=== PATIENT | female | born 1950 | race African-American/Black ===

== ENCOUNTER 2016-12-09 13:53 | Emergency (ER) | payer MEDICARE ==
[~2016-12-09] VITALS: Ht 167.6 cm; Wt 84.0 kg
[~2016-12-09 13:53] MED LIST: METOPROLOL PO; NORVASC PO
[2016-12-09] MEDS ORDERED: ALTEPLASE IV ONE ×2 (15:15→15:29)
[2016-12-09] MEDS ORDERED: ALTEPLASE 100MG/VIAL IV NR ×2 (15:15→15:27)
[2016-12-09] MEDS ORDERED: CONTAINER EMPTY IV ONE ×2 (15:15→15:29)
[2016-12-09] MEDS ORDERED: LABETALOL 5MG/ML SYR 20 MG/4 ML SYRINGE IV ONE ×2 (15:30)
[2016-12-09 15:33] LABS: CLARITY URINE CLEAR (CLEAR); COLOR URINE YELLOW (YELLOW); GLUCOSE URINE NEGATIVE (NEGATIVE); KETONES URINE NEGATIVE (NEGATIVE); LEUKOCYTE ESTERASE URINE NEGATIVE (NEGATIVE); NITRITE URINE NEGATIVE (NEGATIVE); OCCULT BLOOD URINE NEGATIVE (NEGATIVE); PH URINE 5.5 (4.5-8.0); PROTEIN URINE NEGATIVE (NEGATIVE); SPECIFIC GRAVITY URINE 1.009 (1.005-1.030)
[2016-12-09 15:37] LABS: BASOPHILS % 0.8 % (0.0-2.0); HEMATOCRIT. 43.7 % (36.0-48.0); HEMOGLOBIN. 14.4 g/dL (12.0-16.0); MEAN CORPUSCULAR HEMOGLOBIN 28.9 pg (28.0-32.0); MEAN CORPUSCULAR VOLUME 87.6 fL (81.0-99.0); MEAN PLATELET VOLUME 9.4 fl (7.4-10.4); MONOCYTES % 5.5 % (2.0-8.0); NEUTROPHILS % 52.7 % (40.0-76.0); PARTIAL THROMBOPLASTIN TIME 27.8 sec (24.0-34.0); PLATELET 311 x1000/uL (130-400); PROTHROMBIN TIME 10.4 sec; RED BLOOD CELL COUNT 4.99 mill/uL (4.2-5.4)
[2016-12-09 15:41] LABS: CARBON DIOXIDE 23 mEq/L (21-32); CHLORIDE 107 mEq/L (98-107)
[2016-12-09 15:43] LABS: ETHANOL BLOOD < 10 mg/dL
[2016-12-09 15:44] LABS: *AMPHETAMINES SCREEN URINE NEGATIVE (NEGATIVE); *BARBITURATES SCREEN URINE NEGATIVE (NEGATIVE); *BENZODIAZEPINES SCREEN URINE NEGATIVE (NEGATIVE); *COCAINE SCREEN URINE NEGATIVE (NEGATIVE); CANNABINOID URINE SCREEN NEGATIVE (NEGATIVE); METHADONE URINE SCREEN NEGATIVE (NEGATIVE); OPIATES URINE SCREEN NEGATIVE (NEGATIVE); PHENCYCLIDINE URINE SCREEN NEGATIVE (NEGATIVE)
[2016-12-09 15:47] LABS: TROPONIN I < 0.02 ng/mL (0.00-0.04)
[2016-12-09 17:00] VITALS: BP 159/96
== END 2016-12-09 17:25 | disposition short-term general hospital (02) ==
LOC: EDBD 14:00 → ER 14:00
DX: I63.9 Cerebral infarction, unspecified (principal); R53.1 Weakness; I10 Essential (primary) hypertension; Z88.0 Allergy status to penicillin; Z86.73 Personal history of transient ischemic attack (TIA), and cerebral infarction without residual deficits
CPT/HCPCS: 36415; 37195; 70450; 71010; 80053; 80305; 81003; 82962; 83880; 84484; 85025; 85610; 85730; 86850; 86900; 86901; 93005; 99291; G0482; J2997; J3490; 96365; 96375; J7060

== ENCOUNTER → 2017-10-25 | Outpatient (CLI) | payer MEDICARE, MEDICAID | END | disposition home or self-care (01) | LOC: MAMMO 10:28 | PROVIDERS: ATTEND Internal Medicine | DX: Z12.31 Encounter for screening mammogram for malignant neoplasm of breast (principal) | CPT/HCPCS: 77067 ==

== ENCOUNTER 2019-04-10 07:30 | Emergency (ER) | payer MEDICARE, MEDICAID ==
[~2019-04-10] VITALS: Ht 165.1 cm; Wt 82.0 kg
[~2019-04-10 07:30] MED LIST changes: +AMLO10TA80 PO; +ASPI-1158 PO; +ATEN50TA PO; -METOPROLOL PO; -NORVASC PO; +VALS80TA30 PO
[2019-04-10 09:14] LABS: CLARITY URINE CLEAR (CLEAR); COLOR URINE YELLOW (YELLOW); KETONES URINE TRACE (NEGATIVE); LEUKOCYTE ESTERASE URINE 1+ (NEGATIVE); NITRITE URINE NEGATIVE (NEGATIVE); OCCULT BLOOD URINE 2+ (NEGATIVE); PH URINE 5.5 (4.5-8.0); PROTEIN URINE NEGATIVE (NEGATIVE); SPECIFIC GRAVITY URINE 1.026 (1.005-1.030); UROBILINOGEN URINE 0.2 E.U./dL (0.2-1.0)
[2019-04-10 09:17] LABS: BASOPHILS % 1.3 % (0.0-2.0); HEMATOCRIT. 39.5 % (36.0-48.0); HEMOGLOBIN. 13.3 g/dL (12.0-16.0); LYMPHOCYTES % 29.5 % (20.0-50.0); MEAN CORPUSCULAR HEMOGLOBIN 30.9 pg (28.0-32.0); MEAN CORPUSCULAR VOLUME 91.6 fL (81.0-99.0); MEAN PLATELET VOLUME 9.4 fl (7.4-10.4); MONOCYTES % 6.6 % (2.0-8.0); NEUTROPHILS % 54.6 % (40.0-76.0); PLATELET 252 x1000/uL (130-400); RED BLOOD CELL COUNT 4.31 mill/uL (4.2-5.4); RED CELL DISTRIBUTION WIDTH 12.8 % (11.6-14.6)
[2019-04-10 09:20] LABS: CHLORIDE 108 mEq/L (98-107)
[2019-04-10 09:25] LABS: ETHANOL BLOOD < 10 mg/dL
[2019-04-10 09:46] LABS: *AMPHETAMINES SCREEN URINE NEGATIVE (NEGATIVE); *BARBITURATES SCREEN URINE NEGATIVE (NEGATIVE); *BENZODIAZEPINES SCREEN URINE NEGATIVE (NEGATIVE); *COCAINE SCREEN URINE NEGATIVE (NEGATIVE)
[2019-04-10 09:47] LABS: CANNABINOID URINE SCREEN NEGATIVE (NEGATIVE); METHADONE URINE SCREEN NEGATIVE (NEGATIVE); OPIATES URINE SCREEN NEGATIVE (NEGATIVE); PHENCYCLIDINE URINE SCREEN NEGATIVE (NEGATIVE)
[2019-04-10] MEDS ORDERED: ACETAMINOPHEN 325MG TABLET PO ONE (10:15)
[2019-04-10] MEDS ORDERED: KETOROLAC 15MG/ML VIAL IV ONE (10:15)
[2019-04-10] MEDS ORDERED: PROCHLORPERAZINE 10MG/2ML VIAL IV PRN (10:15)
[2019-04-10 12:57] VITALS: BP 132/77
== END 2019-04-10 12:58 | disposition home or self-care (01) ==
LOC: ER 07:30
DX: R51 Headache (principal); N39.0 Urinary tract infection, site not specified; I10 Essential (primary) hypertension; Z98.890 Other specified postprocedural states; Z88.0 Allergy status to penicillin; Z88.8 Allergy status to other drugs, medicaments and biological substances; Z79.82 Long term (current) use of aspirin; Z79.899 Other long term (current) drug therapy
CPT/HCPCS: 36415; 70450; 71045; 80053; 80305; 80320; 81003; 82962; 83880; 84484; 85025; 93005; 96374; 96375; 99284; J1885; G0480

== ENCOUNTER 2020-01-10 10:11 | Emergency (ER) | payer MEDICARE, MEDICAID ==
[~2020-01-10] VITALS: Ht 177.8 cm; Wt 89.0 kg
[2020-01-10] MEDS ORDERED: SODIUM CHLORIDE 0.9% 500 ML IV ONE (11:30)
[2020-01-10] MEDS ORDERED: MORPHINE SULFATE 4 MG/ML CPJ (NOT FOR IM USE) IV ONE (11:30)
[2020-01-10] MEDS ORDERED: ONDANSETRON HCL 4MG/2ML INJ IV ONE (12:15)
[2020-01-10 12:46] VITALS: BP 155/75
[2020-01-10 12:47] LABS: BASOPHILS % 1.3 % (0.0-2.0); EOSINOPHILS % 5.9 % (0.0-5.0); HEMATOCRIT. 41.4 % (36.0-48.0); HEMOGLOBIN. 14.1 g/dL (12.0-16.0); LYMPHOCYTES % 25.8 % (20.0-50.0); MEAN CORPUSCULAR VOLUME 91.1 fL (81.0-99.0); MEAN PLATELET VOLUME 9.9 fl (7.4-10.4); MONOCYTES % 6.3 % (2.0-8.0); NEUTROPHILS % 60.7 % (40.0-76.0); PLATELET 263 x1000/uL (130-400); RED BLOOD CELL COUNT 4.54 mill/uL (4.2-5.4); RED CELL DISTRIBUTION WIDTH 13.3 % (11.6-14.6)
[2020-01-10 12:55] LABS: CHLORIDE 105 mEq/L (98-107)
[2020-01-10] MEDS ORDERED: ASPIRIN 325MG TABLET PO ONE (14:00)
== END 2020-01-10 13:56 | disposition home or self-care (01) ==
LOC: ER 10:11
DX: M25.511 Pain in right shoulder (principal); M25.562 Pain in left knee; M54.5 Low back pain; I10 Essential (primary) hypertension; Z79.899 Other long term (current) drug therapy; Z88.0 Allergy status to penicillin
CPT/HCPCS: 36415; 71045; 73030; 73562; 80053; 83880; 84484; 85025; 93005; 96374; 96375; 99285; J2270; J2405; J7040

== ENCOUNTER 2021-01-04 09:03 | Emergency (ER) | payer MEDICARE, MEDICAID ==
[~2021-01-04] VITALS: Ht 165.1 cm; Wt 77.0 kg
[~2021-01-04 09:03] MED LIST changes: -ASPI-1158 PO; +ASPI-1406 PO; +LOSA50TA41 PO
[2021-01-04 09:18] VITALS: BP 152/89
[2021-01-04] MEDS ORDERED: ACETAMINOPHEN 325MG TABLET PO ONE (09:45)
[2021-01-04] MEDS ORDERED: ACET-2708 MT (11:17)
== END 2021-01-04 11:32 | disposition home or self-care (01) ==
LOC: ER 09:03
DX: M25.561 Pain in right knee (principal); M79.661 Pain in right lower leg; I10 Essential (primary) hypertension; M19.90 Unspecified osteoarthritis, unspecified site; Z98.1 Arthrodesis status; Z88.8 Allergy status to other drugs, medicaments and biological substances; Z88.0 Allergy status to penicillin; W01.0XXA Fall on same level from slipping, tripping and stumbling without subsequent striking against object, initial encounter; Y93.89 Activity, other specified; Y92.018 Other place in single-family (private) house as the place of occurrence of the external cause
CPT/HCPCS: 73562; 93971; 99284

== ENCOUNTER 2021-05-19 11:30 | Inpatient (IN) | payer MEDICARE, MEDICAID ==
[~2021-05-19] VITALS: Ht 167.6 cm; Wt 79.4 kg
[~2021-05-19 11:30] MED LIST changes: +ACET-2708 MT
[2021-05-19 12:13] LABS: BASOPHILS % 1.2 % (0.0-2.0); EOSINOPHILS % 10.5 % (0.0-5.0); HEMATOCRIT. 39.7 % (36.0-48.0); HEMOGLOBIN. 13.3 g/dL (12.0-16.0); LYMPHOCYTES % 40.5 % (20.0-50.0); MEAN CORPUSCULAR HEMOGLOBIN 30.7 pg (28.0-32.0); MEAN CORPUSCULAR VOLUME 91.5 fL (81.0-99.0); MEAN PLATELET VOLUME 9.6 fl (7.4-10.4); MONOCYTES % 7.2 % (2.0-8.0); NEUTROPHILS % 40.6 % (40.0-76.0); PLATELET 272 x1000/uL (130-400); RED BLOOD CELL COUNT 4.34 mill/uL (4.2-5.4); RED CELL DISTRIBUTION WIDTH 12.7 % (11.6-14.6)
[2021-05-19 12:18] LABS: CHLORIDE 109 mEq/L (98-107)
[2021-05-19 12:20] LABS: PROTHROMBIN TIME 10.8 sec (9.6-11.0)
[2021-05-19 12:24] LABS: ETHANOL BLOOD < 10 mg/dL
[2021-05-19] MEDS ORDERED: IPRATROPIUM/ALBUTEROL 0.5-3(2.5)MG/3ML NEB HHN PRN (15:00)
[2021-05-19] MEDS ORDERED: ONDANSETRON HCL 4MG/2ML INJ IV PRN (15:00)
[2021-05-19] MEDS ORDERED: DIPHENHYDRAMINE 50MG/ML VIAL IV PRN (15:00)
[2021-05-19 15:23] LABS: CLARITY URINE CLEAR (CLEAR); COLOR URINE YELLOW (YELLOW); KETONES URINE NEGATIVE (NEGATIVE); LEUKOCYTE ESTERASE URINE 1+ (NEGATIVE); NITRITE URINE NEGATIVE (NEGATIVE); OCCULT BLOOD URINE NEGATIVE (NEGATIVE); PH URINE 5.5 (4.5-8.0); PROTEIN URINE NEGATIVE (NEGATIVE); SPECIFIC GRAVITY URINE 1.016 (1.005-1.030); UROBILINOGEN URINE 0.2 E.U./dL (0.2-1.0)
[2021-05-19 15:34] LABS: *AMPHETAMINES SCREEN URINE NEGATIVE (NEGATIVE); *BARBITURATES SCREEN URINE NEGATIVE (NEGATIVE)
[2021-05-19 15:35] LABS: *BENZODIAZEPINES SCREEN URINE NEGATIVE (NEGATIVE); *COCAINE SCREEN URINE NEGATIVE (NEGATIVE); CANNABINOID URINE SCREEN NEGATIVE (NEGATIVE); METHADONE URINE SCREEN NEGATIVE (NEGATIVE); OPIATES URINE SCREEN NEGATIVE (NEGATIVE); PHENCYCLIDINE URINE SCREEN NEGATIVE (NEGATIVE)
[2021-05-19 20:00] VITALS: BP 150/59
[2021-05-19] MEDS: ACETAMINOPHEN 325MG TABLET PO PRN (21:34)
[2021-05-19] MEDS: CLONIDINE 0.1MG TABLET PO PRN (22:00)
[2021-05-20] VITALS (7 sets, daily range): BP systolic 137–169; BP diastolic 51–81
[2021-05-20] MEDS: ACETAMINOPHEN 325MG TABLET PO PRN ×3 (05:24→20:29)
[2021-05-20 07:28] LABS: CHLORIDE 110 mEq/L (98-107)
[2021-05-20 07:34] LABS: BASOPHILS % 1.1 % (0.0-2.0); EOSINOPHILS % 8.3 % (0.0-5.0); HEMATOCRIT. 38.1 % (36.0-48.0); HEMOGLOBIN. 12.7 g/dL (12.0-16.0); LYMPHOCYTES % 33.3 % (20.0-50.0); MEAN CORPUSCULAR HEMOGLOBIN 30.6 pg (28.0-32.0); MEAN PLATELET VOLUME 9.5 fl (7.4-10.4); MONOCYTES % 7.5 % (2.0-8.0); NEUTROPHILS % 49.8 % (40.0-76.0); PLATELET 262 x1000/uL (130-400); RED BLOOD CELL COUNT 4.14 mill/uL (4.2-5.4); RED CELL DISTRIBUTION WIDTH 12.7 % (11.6-14.6)
[2021-05-20 07:42] LABS: LDL CHOLESTEROL 109 mg/dL (5-100)
[2021-05-20 07:43] LABS: HDL CHOLESTEROL 43 mg/dL (40-59)
[2021-05-20] MEDS ORDERED: IOHEXOL-350 100 ML BOTTLE ONE (13:58)
[2021-05-20] MEDS: CLONIDINE 0.1MG TABLET PO PRN (20:10)
[2021-05-21] VITALS: BP 139/74
[2021-05-21] MEDS: ACETAMINOPHEN 325MG TABLET PO PRN ×2 (01:55→10:36)
[2021-05-21 04:00] VITALS: BP 138/54
[2021-05-21 08:00] VITALS: BP 147/75
[2021-05-21] MEDS ORDERED: ATENOLOL 50 MG TABLET PO SCH (09:00)
[2021-05-21] MEDS ORDERED: AMLODIPINE 10MG TABLET PO SCH (09:00)
[2021-05-21] MEDS ORDERED: LOSARTAN POTASSIUM 50 MG TABLET PO SCH (09:00)
== END 2021-05-21 15:34 | disposition left against medical advice (07) | DRG 948 ==
LOC: ER 11:30 → EDBEDREQTM 13:12 → EDBEDREQSVC 13:12 → EDBEDREQ 13:12 → 7EST 14:09 → EDBEDREQ 14:14 → EDBEDREQTM 14:14 → ENRESERV 17:53
PROVIDERS: ADMIT Internal Medicine; ATTEND Internal Medicine
DX: R53.1 Weakness (principal); I65.21 Occlusion and stenosis of right carotid artery; M19.90 Unspecified osteoarthritis, unspecified site; I10 Essential (primary) hypertension; Z53.29 Procedure and treatment not carried out because of patient's decision for other reasons; Z86.73 Personal history of transient ischemic attack (TIA), and cerebral infarction without residual deficits; Z88.0 Allergy status to penicillin; Z88.8 Allergy status to other drugs, medicaments and biological substances; Z79.899 Other long term (current) drug therapy; Z79.82 Long term (current) use of aspirin; Z79.1 Long term (current) use of non-steroidal anti-inflammatories (NSAID); Z82.49 Family history of ischemic heart disease and other diseases of the circulatory system; Z83.3 Family history of diabetes mellitus
CPT/HCPCS: 36415; 70496; 70498; 70551; 71045; 80053; 80061; 80305; 80320; 81003; 82962; 84443; 84484; 85025; 93005; 93970; 99285; Q9967; G0480

== ENCOUNTER 2021-07-02 21:38 | Emergency (ER) | payer MEDICARE, MEDICAID ==
[~2021-07-02] VITALS: Ht 165.1 cm; Wt 77.0 kg
[2021-07-02 21:53] VITALS: BP 178/82
== END 2021-07-03 01:42 | disposition left against medical advice (07) ==
LOC: ER 21:38
DX: Z53.21 Procedure and treatment not carried out due to patient leaving prior to being seen by health care provider (principal)

== ENCOUNTER 2021-09-24 18:55 | Inpatient (IN) | payer MEDICARE, MEDICAID ==
[~2021-09-24] VITALS: Ht 165.1 cm; Wt 80.3 kg
[2021-09-24] MEDS ORDERED: SODIUM CHLORIDE 0.9% 1,000 ML IV ONE (19:30)
[2021-09-24] MEDS ORDERED: MECLIZINE 25MG TABLET PO ONE (19:45)
[2021-09-24 20:51] LABS: BASOPHILS % 0.8 % (0.0-2.0); EOSINOPHILS % 3.6 % (0.0-5.0); HEMOGLOBIN. 12.9 g/dL (12.0-16.0); MEAN CORPUSCULAR HEMOGLOBIN 30.9 pg (28.0-32.0); MEAN PLATELET VOLUME 9.3 fl (7.4-10.4); MONOCYTES % 6.9 % (2.0-8.0); NEUTROPHILS % 66.7 % (40.0-76.0); PLATELET 250 x1000/uL (130-400); RED BLOOD CELL COUNT 4.18 mill/uL (4.2-5.4); RED CELL DISTRIBUTION WIDTH 12.9 % (11.6-14.6)
[2021-09-24 21:05] LABS: CHLORIDE 107 mEq/L (98-107)
[2021-09-24] MEDS ORDERED: ENOXAPARIN 100MG/ML SYR SUBCUT ONE (22:15)
[2021-09-25 10:00] VITALS: BP 214/75
[2021-09-25] MEDS ORDERED: CLONIDINE 0.1MG TABLET PO PRN (10:00)
[2021-09-25] MEDS ORDERED: ONDANSETRON HCL 4MG/2ML INJ IV PRN (10:00)
[2021-09-25] MEDS ORDERED: LORAZEPAM 0.5MG TABLET PO PRN (10:00)
[2021-09-25] MEDS ORDERED: ACETAMINOPHEN 325MG TABLET PO PRN ×2 (10:00)
[2021-09-25] MEDS ORDERED: IPRATROPIUM/ALBUTEROL 0.5-3(2.5)MG/3ML NEB HHN PRN (10:00)
[2021-09-25] MEDS ORDERED: DOCUSATE SODIUM 100MG CAPSULE PO PRN (10:00)
[2021-09-25] MEDS ORDERED: NALOXONE HCL 0.4MG/ML VIAL IV PRN (10:15)
[2021-09-25] MEDS: MECLIZINE 25MG TABLET PO SCH ×3 (11:11→21:28)
[2021-09-25] MEDS: AMLODIPINE 10MG TABLET PO SCH (11:11)
[2021-09-25] MEDS: LOSARTAN POTASSIUM 50 MG TABLET PO SCH (11:11)
[2021-09-25] MEDS: HYDROCODONE/ACETAMINOPHEN 5/325MG TABLET PO PRN ×2 (11:12→17:55)
[2021-09-25 12:00] VITALS: BP 107/54
[2021-09-25 13:44] LABS: BASOPHILS % 1.3 % (0.0-2.0); HEMATOCRIT. 38.3 % (36.0-48.0); LYMPHOCYTES % 32.4 % (20.0-50.0); MEAN CORPUSCULAR HEMOGLOBIN 30.4 pg (28.0-32.0); MEAN CORPUSCULAR VOLUME 90.1 fL (81.0-99.0); MEAN PLATELET VOLUME 9.5 fl (7.4-10.4); MONOCYTES % 8.6 % (2.0-8.0); NEUTROPHILS % 52.7 % (40.0-76.0); PLATELET 234 x1000/uL (130-400); RED BLOOD CELL COUNT 4.26 mill/uL (4.2-5.4); RED CELL DISTRIBUTION WIDTH 12.6 % (11.6-14.6)
[2021-09-25] MEDS: ASPIRIN 81MG EC TABLET PO SCH (14:54)
[2021-09-25 15:42] LABS: CHLORIDE 110 mEq/L (98-107)
[2021-09-25 15:52] LABS: CREATINE KINASE 247 IU/L (26-192)
[2021-09-25 16:00] VITALS: BP 142/59
[2021-09-25 20:00] VITALS: BP 144/59
[2021-09-25] MEDS ORDERED: ATORVASTATIN CALCIUM 20MG TABLET PO SCH (21:00)
[2021-09-25] MEDS: ATENOLOL 25MG TABLET PO SCH (21:28)
[2021-09-25 22:00] VITALS: BP 148/60
[2021-09-26] VITALS: BP 123/75
[2021-09-26 04:00] VITALS: BP 139/50
[2021-09-26] MEDS: MECLIZINE 25MG TABLET PO SCH ×2 (06:48→14:16)
[2021-09-26 07:48] LABS: BASOPHILS % 1.2 % (0.0-2.0); EOSINOPHILS % 9.2 % (0.0-5.0); HEMOGLOBIN. 13.1 g/dL (12.0-16.0); MEAN CORPUSCULAR HEMOGLOBIN 30.5 pg (28.0-32.0); MEAN CORPUSCULAR VOLUME 91.2 fL (81.0-99.0); MEAN PLATELET VOLUME 9.3 fl (7.4-10.4); MONOCYTES % 10.3 % (2.0-8.0); NEUTROPHILS % 46.3 % (40.0-76.0); PLATELET 245 x1000/uL (130-400); RED BLOOD CELL COUNT 4.28 mill/uL (4.2-5.4); RED CELL DISTRIBUTION WIDTH 12.8 % (11.6-14.6)
[2021-09-26 08:00] VITALS: BP 130/60
[2021-09-26 08:10] LABS: CHLORIDE 109 mEq/L (98-107)
[2021-09-26 08:14] LABS: CREATINE KINASE 237 IU/L (26-192)
[2021-09-26] MEDS: ATENOLOL 25MG TABLET PO SCH (08:28)
[2021-09-26] MEDS: ASPIRIN 81MG EC TABLET PO SCH (08:35)
[2021-09-26] MEDS: LOSARTAN POTASSIUM 50 MG TABLET PO SCH (08:35)
[2021-09-26] MEDS: AMLODIPINE 10MG TABLET PO SCH (08:35)
[2021-09-26 12:00] VITALS: BP 114/81
[2021-09-26] MEDS: HYDROCODONE/ACETAMINOPHEN 5/325MG TABLET PO PRN (12:31)
[2021-09-26] MEDS ORDERED: ATEN-42 MT (15:07)
[2021-09-26] MEDS ORDERED: ATOR20TA PO (15:07)
[2021-09-26] MEDS ORDERED: MECL-159 MT (15:07)
[2021-09-26 15:25] VITALS: BP 114/81
[2021-09-26 16:00] VITALS: BP 162/90
[2021-09-26] MEDS ORDERED: LOSARTAN POTASSIUM 50 MG TABLET PO NR (16:45)
[2021-09-26] MEDS ORDERED: LOSA50TA41 MT (16:47)
== END 2021-09-26 19:22 | disposition home health service (06) | DRG 149 ==
LOC: ER 18:55 → MICUSO 23:11 → EDBEDREQ 23:15 → EDBEDREQTM 23:15 → 6WST 09-25 09:46
PROVIDERS: ADMIT Internal Medicine; ATTEND Internal Medicine
DX: H81.10 Benign paroxysmal vertigo, unspecified ear (principal); I21.A1 Myocardial infarction type 2; I16.1 Hypertensive emergency; I10 Essential (primary) hypertension; I65.23 Occlusion and stenosis of bilateral carotid arteries; K21.9 Gastro-esophageal reflux disease without esophagitis; E78.5 Hyperlipidemia, unspecified; E11.65 Type 2 diabetes mellitus with hyperglycemia; I48.0 Paroxysmal atrial fibrillation; Z20.822 Contact with and (suspected) exposure to COVID-19; M19.90 Unspecified osteoarthritis, unspecified site; Z82.49 Family history of ischemic heart disease and other diseases of the circulatory system; Z83.3 Family history of diabetes mellitus; Z88.0 Allergy status to penicillin; Z88.8 Allergy status to other drugs, medicaments and biological substances
CPT/HCPCS: 36415; 70551; 71045; 80048; 80053; 82550; 83735; 83880; 84443; 84484; 85025; 87426; 93005; 93306; 97162; 99285; J1650; J7030; J8597

== ENCOUNTER 2022-12-22 16:02 | Inpatient (IN) | payer MEDICARE, MEDICAID ==
[~2022-12-22] VITALS: Ht 165.1 cm; Wt 89.9 kg
[~2022-12-22 16:02] MED LIST changes: +ATEN-42 MT; -ATEN50TA PO; +ATOR20TA PO; +LOSA50TA41 MT; -LOSA50TA41 PO; +MECL-159 MT; -VALS80TA30 PO
[2022-12-22 16:47] LABS: BASOPHILS % 0.9 % (0.0-2.0); EOSINOPHILS % 3.5 % (0.0-5.0); HEMATOCRIT. 36.6 % (36.0-48.0); HEMOGLOBIN. 12.1 g/dL (12.0-16.0); LYMPHOCYTES % 27.7 % (20.0-50.0); MEAN CORPUSCULAR HEMOGLOBIN 29.9 pg (28.0-32.0); MEAN CORPUSCULAR VOLUME 90.4 fL (81.0-99.0); MEAN PLATELET VOLUME 9.9 fl (7.4-10.4); MONOCYTES % 7.5 % (2.0-8.0); NEUTROPHILS % 60.4 % (40.0-76.0); PLATELET 304 x1000/uL (130-400); RED BLOOD CELL COUNT 4.04 mill/uL (4.2-5.4); RED CELL DISTRIBUTION WIDTH 13.7 % (11.6-14.6)
[2022-12-22 16:53] LABS: CHLORIDE 110 mEq/L (98-107)
[2022-12-22] MEDS ORDERED: DILTIAZEM HCL 5MG/ML 5ML VIAL IV ONE (19:15)
[2022-12-22] MEDS ORDERED: ENOXAPARIN 80MG/0.8ML SYR SUBCUT ONE (19:15)
[2022-12-22 20:25] VITALS: BP 122/71
[2022-12-22] MEDS ORDERED: NALOXONE HCL 0.4MG/ML VIAL IV PRN (22:30)
[2022-12-22] MEDS ORDERED: GABA-532 PO (22:40)
[2022-12-22] MEDS ORDERED: TRAM50TA3 PO (22:41)
[2022-12-22] MEDS ORDERED: BACL-141 PO (22:41)
[2022-12-22] MEDS ORDERED: ATEN50TA PO (22:42)
[2022-12-22] MEDS ORDERED: NAPR500T7 PO (22:42)
[2022-12-22] MEDS ORDERED: CLOP-31 PO (22:43)
[2022-12-22] MEDS ORDERED: ISOS30TA91 PO (22:43)
[2022-12-22] MEDS ORDERED: MELO-106 PO (22:44)
[2022-12-22] MEDS ORDERED: IBUP-2029 PO (22:45)
[2022-12-22] MEDS ORDERED: PANT40TA51 PO (22:46)
[2022-12-22] MEDS ORDERED: LOSA50TA41 PO (22:46)
[2022-12-22] MEDS ORDERED: MECL-159 PO (22:48)
[2022-12-23] VITALS: BP 125/69
[2022-12-23] MEDS: HYDROCODONE/ACETAMINOPHEN 5/325MG TABLET PO PRN (00:48)
[2022-12-23 04:00] VITALS: BP 123/63
[2022-12-23 06:41] LABS: BASOPHILS % 0.8 % (0.0-2.0); EOSINOPHILS % 3.5 % (0.0-5.0); HEMOGLOBIN. 12.5 g/dL (12.0-16.0); LYMPHOCYTES % 41.1 % (20.0-50.0); MEAN CORPUSCULAR HEMOGLOBIN 30.4 pg (28.0-32.0); MEAN CORPUSCULAR VOLUME 90.1 fL (81.0-99.0); MEAN PLATELET VOLUME 10.4 fl (7.4-10.4); MONOCYTES % 8.4 % (2.0-8.0); NEUTROPHILS % 46.2 % (40.0-76.0); PLATELET 282 x1000/uL (130-400); RED BLOOD CELL COUNT 4.11 mill/uL (4.2-5.4); RED CELL DISTRIBUTION WIDTH 14.1 % (11.6-14.6)
[2022-12-23 06:45] LABS: CHLORIDE 108 mEq/L (98-107)
[2022-12-23 07:43] LABS: CREATINE KINASE 204 IU/L (26-192); HDL CHOLESTEROL 36 mg/dL (40-59)
[2022-12-23 08:00] VITALS: BP 130/63
[2022-12-23] MEDS ORDERED: METOPROLOL TARTRATE 25MG TABLET PO SCH (09:00)
[2022-12-23] MEDS ORDERED: AMLODIPINE 10MG TABLET PO SCH (09:00)
[2022-12-23] MEDS ORDERED: LOSARTAN POTASSIUM 50 MG TABLET PO SCH (09:00)
[2022-12-23] MEDS ORDERED: ENOXAPARIN 40MG/0.4ML SYR SUBCUT SCH (09:00)
[2022-12-23] MEDS ORDERED: INDOMETHACIN 25MG CAPSULE PO SCH (09:00)
[2022-12-23] MEDS ORDERED: DEXTROSE 50% WATER 50ML SYRINGE IV PRN ×2 (09:15)
[2022-12-23] MEDS ORDERED: CLONIDINE 0.1MG TABLET PO PRN (09:15)
[2022-12-23] MEDS ORDERED: NITROGLYCERIN OINT 1GM/INCH UDPKT TD NR (09:15)
[2022-12-23] MEDS ORDERED: ONDANSETRON HCL 4MG/2ML INJ IV PRN (09:15)
[2022-12-23] MEDS ORDERED: MAGNESIUM/ALUMINUM HYDROXIDE/SIMETHICONE 30ML UDC PO PRN (09:15)
[2022-12-23] MEDS: ISOSORBIDE MONONITRATE 30MG TABLET SR 24HR PO SCH (09:32)
[2022-12-23] MEDS: ASPIRIN 81MG EC TABLET PO SCH (09:32)
[2022-12-23 10:30] LABS: LDL CHOLESTEROL 79 mg/dL (5-100)
[2022-12-23] MEDS: BLOOD SUGAR DIAGNOSTIC STRIP TEST SCH ×3 (11:50→21:30)
[2022-12-23 12:00] VITALS: BP 101/73
[2022-12-23] MEDS ORDERED: DILTIAZEM HCL 5MG/ML 5ML VIAL IV PRN (12:00)
[2022-12-23] MEDS: INSULIN LISPRO 100 UNITS/ML SUBCUT SCH ×3 (13:13→21:30)
[2022-12-23] MEDS: DILTIAZEM HCL 60MG TABLET PO SCH ×3 (13:24→21:27)
[2022-12-23] MEDS ORDERED: DIGOXIN 500MCG/2ML AMP IV NR (13:45)
[2022-12-23] MEDS ORDERED: SODIUM CHLORIDE 0.45% 250 ML IV ONE (14:15)
[2022-12-23 16:00] VITALS: BP 136/67
[2022-12-23] MEDS ORDERED: DIGOXIN 500MCG/2ML AMP IV SCH (18:00)
[2022-12-23] MEDS: ACETAMINOPHEN 325MG TABLET PO PRN (18:36)
[2022-12-23 20:00] VITALS: BP 138/61
[2022-12-23 20:03] LABS: CLARITY URINE CLEAR (CLEAR); COLOR URINE YELLOW (YELLOW); KETONES URINE NEGATIVE (NEGATIVE); LEUKOCYTE ESTERASE URINE 2+ (NEGATIVE); NITRITE URINE NEGATIVE (NEGATIVE); OCCULT BLOOD URINE NEGATIVE (NEGATIVE); PROTEIN URINE TRACE (NEGATIVE); SPECIFIC GRAVITY URINE 1.024 (1.005-1.030); UROBILINOGEN URINE 0.2 E.U./dL (0.2-1.0)
[2022-12-23 20:15] LABS: *AMPHETAMINES SCREEN URINE NEGATIVE (NEGATIVE); *BARBITURATES SCREEN URINE NEGATIVE (NEGATIVE); *BENZODIAZEPINES SCREEN URINE NEGATIVE (NEGATIVE); *COCAINE SCREEN URINE NEGATIVE (NEGATIVE); CANNABINOID URINE SCREEN NEGATIVE (NEGATIVE); METHADONE URINE SCREEN NEGATIVE (NEGATIVE); OPIATES URINE SCREEN PRESUMTIVE POSITIVE (NEGATIVE); PHENCYCLIDINE URINE SCREEN NEGATIVE (NEGATIVE)
[2022-12-23] MEDS ORDERED: ATORVASTATIN CALCIUM 20MG TABLET PO SCH (21:00)
[2022-12-24] VITALS: BP 148/73
[2022-12-24 04:00] VITALS: BP 145/74
[2022-12-24 05:50] LABS: BASOPHILS % 1.1 % (0.0-2.0); EOSINOPHILS % 3.2 % (0.0-5.0); HEMATOCRIT. 37.3 % (36.0-48.0); HEMOGLOBIN. 12.6 g/dL (12.0-16.0); LYMPHOCYTES % 30.5 % (20.0-50.0); MEAN CORPUSCULAR HEMOGLOBIN 30.5 pg (28.0-32.0); MEAN PLATELET VOLUME 9.8 fl (7.4-10.4); MONOCYTES % 9.5 % (2.0-8.0); NEUTROPHILS % 55.7 % (40.0-76.0); PLATELET 247 x1000/uL (130-400); RED BLOOD CELL COUNT 4.15 mill/uL (4.2-5.4); RED CELL DISTRIBUTION WIDTH 13.4 % (11.6-14.6)
[2022-12-24] MEDS: DILTIAZEM HCL 60MG TABLET PO SCH (05:59)
[2022-12-24 06:11] LABS: CHLORIDE 109 mEq/L (98-107)
[2022-12-24] MEDS ORDERED: PANTOPRAZOLE 40MG DR TABLET PO SCH (06:50)
[2022-12-24] MEDS: BLOOD SUGAR DIAGNOSTIC STRIP TEST SCH ×2 (07:04→11:48)
[2022-12-24] MEDS: INSULIN LISPRO 100 UNITS/ML SUBCUT SCH ×2 (07:20→11:48)
[2022-12-24 07:57] LABS: HDL CHOLESTEROL 33 mg/dL (40-59); PHOSPHORUS 3.6 mg/dL (2.5-4.9); T4 FREE 1.04 ng/dL (0.76-1.46)
[2022-12-24 08:00] VITALS: BP 153/72
[2022-12-24 08:43] LABS: LDL CHOLESTEROL 83 mg/dL (5-100)
[2022-12-24] MEDS: ISOSORBIDE MONONITRATE 30MG TABLET SR 24HR PO SCH (08:52)
[2022-12-24] MEDS: ACETAMINOPHEN 325MG TABLET PO PRN (08:52)
[2022-12-24] MEDS ORDERED: FAMOTIDINE 20MG TABLET PO SCH (09:00)
[2022-12-24] MEDS ORDERED: APIXABAN 5 MG TABLET PO SCH (09:00)
[2022-12-24] MEDS ORDERED: CLOPIDOGREL 75MG TABLET PO SCH (09:00)
[2022-12-24] MEDS: ASPIRIN 81MG EC TABLET PO SCH (09:54)
[2022-12-24] MEDS ORDERED: APIX5TAB PO (10:45)
[2022-12-24] MEDS ORDERED: DILT30TA37 PO (10:45)
[2022-12-24 12:00] VITALS: BP 144/68
[2022-12-24] MEDS: HYDROCODONE/ACETAMINOPHEN 5/325MG TABLET PO PRN (13:16)
[2022-12-24] MEDS ORDERED: MORPHINE SULFATE 2 MG/ML CPJ (NOT FOR IM USE) IV NR (13:45)
[2022-12-24] MEDS ORDERED: DILTIAZEM HCL 30MG TABLET PO SCH (14:00)
[2022-12-24 14:26] VITALS: BP 141/57
[2022-12-24 16:00] VITALS: BP 132/46
[2022-12-25 22:30] LABS: CREATINE KINASE MB FRACTION 5.2 ng/mL (0.5-3.6)
== END 2022-12-24 21:49 | disposition home or self-care (01) | DRG 280 ==
LOC: ER 16:02 → 3WST 17:34 → EDBEDREQTM 17:38 → EDBEDREQ 17:38
PROVIDERS: ADMIT Internal Medicine; ATTEND Internal Medicine
DX: I21.4 Non-ST elevation (NSTEMI) myocardial infarction (principal); I50.33 Acute on chronic diastolic (congestive) heart failure; I48.91 Unspecified atrial fibrillation; E78.5 Hyperlipidemia, unspecified; M48.061 Spinal stenosis, lumbar region without neurogenic claudication; K21.9 Gastro-esophageal reflux disease without esophagitis; G89.29 Other chronic pain; I11.0 Hypertensive heart disease with heart failure; I25.10 Atherosclerotic heart disease of native coronary artery without angina pectoris; I65.22 Occlusion and stenosis of left carotid artery; I34.0 Nonrheumatic mitral (valve) insufficiency; I25.2 Old myocardial infarction; Z82.49 Family history of ischemic heart disease and other diseases of the circulatory system; Z83.3 Family history of diabetes mellitus; Z88.0 Allergy status to penicillin; Z95.5 Presence of coronary angioplasty implant and graft; Z79.899 Other long term (current) drug therapy; Z79.82 Long term (current) use of aspirin
CPT/HCPCS: 36415; 71045; 80048; 80053; 80061; 80076; 80162; 80305; 81003; 82550; 82553; 82962; 83036; 83735; 83880; 84100; 84439; 84443; 84484; 85025; 93005; 93306; 93970; 99291; J1160; J1650; J1815; J2270; J3490

== ENCOUNTER 2023-02-12 15:44 | Emergency (ER) | payer MEDICARE, MEDICAID ==
[~2023-02-12] VITALS: Ht 172.7 cm; Wt 81.0 kg
[~2023-02-12 15:44] MED LIST changes: -AMLO10TA80 PO; +APIX5TAB PO; -ATEN-42 MT; +CLOP-31 PO; +DILT30TA37 PO; +GABA-532 PO; +IBUP-2029 PO; +ISOS30TA91 PO; -LOSA50TA41 MT; +LOSA50TA41 PO; -MECL-159 MT; +MECL-159 PO; +MELO-106 PO; +PANT40TA51 PO; +TRAM50TA3 PO
[2023-02-12 16:43] VITALS: BP 186/88; PULSE 70; RESP 16; TEMP 97.7; O2SAT 97
[2023-02-12 17:58] LABS: BASOPHILS % 1.2 % (0.0-2.0); EOSINOPHILS % 11.3 % (0.0-5.0); HEMATOCRIT. 37.3 % (36.0-48.0); HEMOGLOBIN. 12.3 g/dL (12.0-16.0); LYMPHOCYTES % 18.7 % (20.0-50.0); MEAN CORPUSCULAR HEMOGLOBIN 30.4 pg (28.0-32.0); MEAN CORPUSCULAR VOLUME 92.2 fL (81.0-99.0); MEAN PLATELET VOLUME 9.6 fl (7.4-10.4); MONOCYTES % 7.2 % (2.0-8.0); NEUTROPHILS % 61.6 % (40.0-76.0); PLATELET 261 x1000/uL (130-400); RED BLOOD CELL COUNT 4.05 mill/uL (4.2-5.4); RED CELL DISTRIBUTION WIDTH 13.9 % (11.6-14.6)
[2023-02-12 17:59] LABS: CHLORIDE 103 mEq/L (98-107)
== END 2023-02-12 19:36 | disposition left against medical advice (07) ==
LOC: ER 15:44
DX: Z53.21 Procedure and treatment not carried out due to patient leaving prior to being seen by health care provider (principal); I49.9 Cardiac arrhythmia, unspecified
CPT/HCPCS: 36415; 80053; 84484; 85025; 93005; 99281

== ENCOUNTER 2024-04-28 13:29 | Emergency (ER) | payer MEDICARE, MEDICAID ==
[~2024-04-28] VITALS: Ht 165.1 cm; Wt 82.0 kg
[~2024-04-28 13:29] MED LIST changes: +AMLO10TA80 PO; -ATOR20TA PO; -DILT30TA37 PO; +HYDR-4001 MT; -IBUP-2029 PO; -ISOS30TA91 PO; +ISOS60TA76 PO; +LIP40 PO; -MECL-159 PO; +MECL-299 PO; -MELO-106 PO; +SPIR25TA PO; -TRAM50TA3 PO
[2024-04-28 13:34] VITALS: O2SAT 100
[2024-04-28] MEDS ORDERED: IBUPROFEN 600MG TABLET PO ONE (14:30)
[2024-04-28 16:05] VITALS: BP 185/82; PULSE 67; RESP 18; TEMP 37.05852; O2SAT 97
== END 2024-04-28 16:57 | disposition home or self-care (01) ==
LOC: ER 13:29
DX: G89.29 Other chronic pain (principal); M54.9 Dorsalgia, unspecified; I10 Essential (primary) hypertension; K21.9 Gastro-esophageal reflux disease without esophagitis; Z79.899 Other long term (current) drug therapy; I25.2 Old myocardial infarction; Z88.0 Allergy status to penicillin
CPT/HCPCS: 99283

== ENCOUNTER 2024-08-06 21:07 | Emergency (ER) | payer MEDICARE, MEDICAID ==
[~2024-08-06] VITALS: Ht 162.6 cm; Wt 77.0 kg
[~2024-08-06 21:07] MED LIST changes: +GABA-1180 PO; -GABA-532 PO
[2024-08-06 21:08] VITALS: O2SAT 98
[2024-08-06] MEDS: ACETAMINOPHEN 325MG TABLET PO ONE (21:30)
[2024-08-06] MEDS: GABAPENTIN 100MG CAPSULE PO ONE (21:30)
[2024-08-06 23:40] LABS: BASOPHILS % 1.2 % (0.0-2.0); EOSINOPHILS % 6.7 % (0.0-5.0); HEMATOCRIT. 34.9 % (36.0-48.0); HEMOGLOBIN. 11.5 g/dL (12.0-16.0); MEAN CORPUSCULAR HEMOGLOBIN 31.4 pg (28.0-32.0); MEAN CORPUSCULAR HGB CONC 32.8 g/dL (31.0-37.0); MEAN CORPUSCULAR VOLUME 95.7 fL (81.0-99.0); MEAN PLATELET VOLUME 8.8 fl (7.4-10.4); NEUTROPHILS % 64.1 % (40.0-76.0); PLATELET 275 x1000/uL (130-400); RED BLOOD CELL COUNT 3.64 mill/uL (4.2-5.4); RED CELL DISTRIBUTION WIDTH 13.1 % (11.6-14.6); WHITE BLOOD COUNT 4.4 x1000/uL (4.5-11.0)
[2024-08-06 23:43] LABS: CHLORIDE 110 mEq/L (98-107); POTASSIUM 4.4 mEq/L (3.5-5.1); SODIUM 141 mEq/L (136-145)
[2024-08-06 23:44] LABS: CALCIUM 8.9 mg/dL (8.7-10.4); CARBON DIOXIDE 23 mEq/L (21-32)
[2024-08-06 23:49] LABS: CREATININE 1.2 mg/dL (0.6-1.0); GLUCOSE 137 mg/dL (70-105); UREA NITROGEN BLOOD 22 mg/dL (9-23)
[2024-08-06 23:51] LABS: CREATINE KINASE 248 IU/L (34-145); PHOSPHORUS 3.5 mg/dL (2.5-4.9)
[2024-08-07] MEDS: ACETAMINOPHEN 325MG TABLET PO NR (02:57)
[2024-08-07] MEDS: GABAPENTIN 100MG CAPSULE PO NR (02:57)
[2024-08-07 06:09] VITALS: BP 142/80; PULSE 75; RESP 18; TEMP 36.44736; O2SAT 98
== END 2024-08-07 07:16 | disposition left against medical advice (07) ==
LOC: ER 21:07 → EDBEDREQ 08-07 06:07 → EDBEDREQTM 08-07 06:07 → ER 08-07 07:16
DX: M79.605 Pain in left leg (principal); I10 Essential (primary) hypertension; I25.10 Atherosclerotic heart disease of native coronary artery without angina pectoris; E11.42 Type 2 diabetes mellitus with diabetic polyneuropathy; Z79.01 Long term (current) use of anticoagulants; Z79.02 Long term (current) use of antithrombotics/antiplatelets; Z79.82 Long term (current) use of aspirin; Z79.899 Other long term (current) drug therapy; Z82.49 Family history of ischemic heart disease and other diseases of the circulatory system; Z83.3 Family history of diabetes mellitus; Z88.0 Allergy status to penicillin
CPT/HCPCS: 36415; 80048; 82550; 83735; 84100; 85025; 93971; 99284